=== PATIENT | female | born 1965 | race Caucasian/White ===

== ENCOUNTER 2023-11-27 18:53 | Emergency (ER) | payer BC, SELFPAY ==
[2023-11-27 18:59] VITALS: BP 139/97
[2023-11-27 19:17] LABS: % Basophils 0.4 % (0-2); % Eosinophils 1.9 % (0-6); % Immature Granulocytes 0.1 % (0-0.5); % Lymphocytes 21.1 % (20.5-51.1); % Neutrophils 71.5 % (42.2-75.2); Absolute Eosinophils 0.1 10^3/uL (0-0.7); Absolute Lymphocytes 1.6 10^3/uL (1.2-3.4); Absolute Monocytes 0.4 10^3/uL (0.1-0.6); Absolute Neutrophils 5.3 10^3/uL (1.4-6.5); Hematocrit 40.6 % (37.0-47.0); Hemoglobin 14.5 g/dL (12.0-16.0); Mean Corp Hgb Conc. 35.7 g/dL (33.0-37.0); Mean Corpuscular Hgb 30.7 pg (27.0-31.0); Mean Platelet Volume 9.7 fL (7.4-10.4); Nucleated Red Blood Cells % 0 %; Platelet Count 218 10^3/uL (130-400); Red Blood Cell Count 4.72 10^6/uL (4.20-5.40); Red Cell Dist. Width 12.2 % (11.5-14.5); White Blood Cell Count 7.5 10^3/uL (4.8-10.8)
[2023-11-27 19:28] LABS: ALT (SGPT) 17 U/L (0-35); AST (SGOT) 26 U/L (14-36); Albumin 4.4 g/dl (3.5-5.0); Alkaline Phosphatase 104 U/L (38-126); Blood Urea Nitrogen 12 mg/dl (7-17); Calcium 9.2 mg/dl (8.4-10.2); Carbon Dioxide 28 mmol/L (22-30); Chloride 102 mmol/L (98-107); Glucose 141 mg/dl (70-99); Lipase 169 U/L (23-300); Potassium 4.1 mmol/L (3.5-5.1); Sodium 139 mmol/L (135-145); Total Bilirubin 0.5 mg/dl (0.2-1.3); Total Protein 7.1 g/dl (6.3-8.2); eGFR > 60.00
[2023-11-27 20:39] VITALS: BMI 24.5
[2023-11-27 21:00] VITALS: BP 134/98
[2023-11-27] MEDS: OMNIPAQUE 50 ML PO (21:15)
--- NOTE | 2023-11-27 21:16 | ED.GENMED ---
History of Present Illness
General
Chief Complaint: Abdominal Pain
Source: patient
Exam Limitations: none
Time Seen by Provider: 11/27/23 20:47
History of Present Illness
History of Present Illness:
This is a 58 year old female that comes in with c/o abd pain. States that she has had pain all day. States that she feels bloated and has been constipated. States that she did have a BM today. Denies any fever, chills, chest pain, SOB, nausea,
vomiting, diarrhea, headache, dizziness, urinary burning.
Past History
Past History
ED Past Medical History: Other (Diverticulitis, ); Negative Asthma, HTN, Hypercholesterolemia or NIDDM
ED Past Surgical History: Other (Hernia repair)
Social History
Tobacco: Former smoker
Alcohol: Occasional
Personal:
Living: with family
Review of Systems
Review of Systems
All Other Systems: ROS reviewed and negative except as documented in HPI and ROS
Constitutional: Reports no symptoms; Denies fever or chills
EENT: Reports no symptoms
Respiratory: Reports no symptoms; Denies cough or trouble breathing
Cardiac: Reports no symptoms; Denies chest pain
ABD/GI: Reports abdominal pain; Denies nausea, vomiting or diarrhea
: Reports no symptoms; Denies dysuria, frequency or urgency
Musculoskeletal: Reports no symptoms
Skin: Reports no symptoms
Neurological: Reports no symptoms; Denies dizzy or headache
Psychiatric: Reports no symptoms
Phy Exam
General Physical Exam
General Presentation: well appearing and no apparent distress
General age: appears stated age
General Skin: warm and dry
General Habitus: normal
General Mental: alert
General Hydration: appears well hydrated
ENT Exam
ENT Exam: TM's normal, pharynx normal and neck supple
Eye Exam
Eye Exam: EOMI
Cardiovascular Exam
Cardiovascular Exam: regular rate/rhythm, no edema, no murmur and normal peripheral pulses
Pulmonary Exam
Pulmonary Exam: lungs clear, no respiratory distress, no rales, chest non tender, no crackles, no rhonchi, no wheezing and no cough
Gastrointestinal Exam
Gastrointestinal Exam: normal bowel sounds, soft, no organomegaly, no pulsatile mass, non distended and tender (epigastric and right and left sided tenderness with palpation)
Musculoskeletal Exam
Musculoskeletal Exam: full ROM and no edema
Skin Exam
Skin Exam: normal color, warm/dry, no rash and no petechia
Psychiatric Exam
Psychiatric Exam: normal mood/affect
Course
Orders/Labs/Results
Orders:
Orders
11/27/23 19:07
Complete Blood Count/With Diff Urgent
Comprehensive Metabolic Panel Urgent
HCG, Serum Qualitative Screen Urgent
Comment: ADD ON
Lipase Urgent
11/27/23 21:08
CT Abd/pel W Iv And Oral Contr Urgent
Comment:
Reason For Exam: abd pain
0.9% Sodium Chloride 1000 ml [Nss] 1,000 ml IV BOLUS
Iohexol [Omnipaque] See Protocol PO NOW STA
11/27/23 21:09
Add On- LAB Urgent
Tests Added?: HCG
11/27/23 21:26
Urinalysis Reflex To Culture Urgent
Date Specimen was Collected: 11/27/23
Time Specimen was Collected: 21:26
Abnormal Lab Results
11/27/23
19:07
Glucose 141 H mg/dl
(70-99)
11/27/23 19:07
11/27/23 19:07
Glucose nonfasting. Lipase normal at 169, Urine negative for infection. HCG negative.
Vital Signs
Initial and Last Documented VS:
Initial Vital Signs
Temp Pulse Resp BP Pulse Ox
98.1 F 73 18 139/97 98
11/27/23 18:59 11/27/23 18:59 11/27/23 18:59 11/27/23 18:59 11/27/23 18:59
Last Documented Vital Signs
Temp Pulse Resp BP Pulse Ox
98.1 F 67 16 134/98 99
11/27/23 18:59 11/27/23 20:43 11/27/23 20:43 11/27/23 21:00 11/27/23 21:30
MDM/Problems Addressed
Differential Diagnosis Includes:
constipation. Diverticulitis,
MDM/Problems Addressed:
This is a 58 year old female that comes in with c/o abd pain. States that she has had pain all day. States that she feels bloated.
will get labs, CT scan. IV fluids
back into see patient. Explained that her CT was negative for any acute process. There is some inflammation surrounding the base of the appendix. However, palpated patient abd again in the RLQ and she has not tenderness. Explained to patient that
she needs to increase her water intake to 8-8oz glasses daily. Use Miralax daily for her constipation and she can also drink Prune juice with apple juice and heat and drink daily. Patient to follow up with the family doctor. Return with fever,
nausea, vomiting, increased or changing pain.
Chronic conditions affecting care:
diverticulitis,
Acute Exacerbation and/or Progression of Chronic Illness:
NA
*Radiology
Radiology exam reviewed: radiology read reviewed (CT night hawk- No acute abnormality within the abdomen or pelvis. No bowel obstruction. Normal gallbladder. Trace inflammatory changes surrounding the base of the appendix, however, relatively normal
underdistended size measuring up to 7mm at the base. Consider correlation with right lower quadrant.), all reviewed NAD by ED Provider (CT cont- Incidentals: diverticulosis without evidence of diverticulitis. No obstructive uropathy. No hepatic or
pancreatic mass. No abdominal aortic aneurysm. No acute osseous abnormality. No acute abnormality within the visualized lungs. No acute abnormality within the visualized soft tissues. ) and other
*Pulse Oximetry
Patient hypoxic: no
*EKG
Interpreted by ED Provider?: NA
Rate: EKG- N/A
*Supervisor Billposting Interpretation
Rate: Supervisor Billposting- N/A
*Critical Care Note
Total Time (30-74mins, 75-104mins- exclusive of procedures): Not Applicable
ED Attending Note
-
Portions of this chart may have been created with voice recognition software.� Occasional wrong word or��sound alike� substitutions may have occurred due to the inherent limitations of voice recognition software.
Discharge Plan
Departure
Patient Disposition: Home (Routine Discharge)
Date of Disposition: 11/28/23
Time of Disposition: 00:09
Patient with high blood pressure during this ER visit?: Yes
Condition: Good
Covid-19: Not Applicable
Discharge Problem:
Abdominal pain
Instructions: Abdominal Pain, BLOOD PRESSURE
Referrals:
UNKNOWN - PT DOES,NOT KNOW [Family Provider] -
Activity Restrictions/Additional Instructions:
As discussed, your blood work is normal along with your urine. Your CT is negative for any acute process. There is some inflammation near the appendix but the appendix is not enlarged and there is no sign of appendicitis. You have no pain with
palpation in the right lower quadrant with palpation. Please increase your water intake to 8-8oz glasses daily. You may use Miralax for your constipation. You can also try Prune juice mixed with apple juice in equal amount and heat and drink daily.
Follow up with the family doctor for recheck. IF YOU HAVE FEVER, INCREASED OR CHANGING PAIN, NAUSEA, VOMITING, OR YOU HAVE ANY OTHER CONCERNS PLEASE RETURN TO THE EMERGENCY ROOM.
Interventions
Interventions:
*Risk Screen - Suicide Last Done: 11/27/23 20:39
*General Assessment Last Done: 11/27/23 20:39
*Neglect/Abuse Screening Last Done: 11/27/23 20:39
ED- Fall Risk Assessment Last Done: 11/27/23 20:39
*ED COVID-19 Vaccine History Last Done: 11/27/23 20:39
TG-Bajnyg-Nqhmbopwlz Assessment Last Done: 11/27/23 20:39
Discharge Date and Time
Print Language: MALAY
[2023-11-27] MEDS: NSS 1000 IV (21:25)
[2023-11-27 21:35] LABS: HCG, Serum Qualitative Screen Negative
[2023-11-27 21:36] LABS: Urine Albumin Negative (Neg - Trace); Urine Bilirubin Negative (Negative); Urine Character Clear (Clear); Urine Color Yellow; Urine Glucose Negative (Negative); Urine Ketone Negative (Negative); Urine Leukocyte Negative (Negative); Urine Nitrite Negative (Negative); Urine Occult Blood Negative (Negative); Urine Urobilinogen Negative (Neg - 1+)
[2023-11-28 00:30] VITALS: BP 142/92
== END 2023-11-28 00:32 | disposition home or self-care (01) ==
LOC: EMR 18:53
PROVIDERS: Clinical Nurse Specialist Family Health; Emergency Medicine; EMERGENCY PHYSICIAN Emergency Medicine
DX: R10.9 Unspecified abdominal pain (principal); R14.0 Abdominal distension (gaseous); K59.00 Constipation, unspecified; K57.92 Diverticulitis of intestine, part unspecified, without perforation or abscess without bleeding; Z87.891 Personal history of nicotine dependence; Z88.0 Allergy status to penicillin
CPT/HCPCS: 99285; 96360; 74177; 80053; 81003; 83690; 84703; 85025; Q9967